=== PATIENT | female | born 1995 | race Two or more races ===

== ENCOUNTER 2023-10-08 20:55 | Inpatient (IN) | payer OTHER ==
[2023-10-08] MEDS ORDERED: DINOPROSTONE 10 MG VAGINAL SUPPOSITORY VG ONE (21:50)
[2023-10-08] MEDS: ELECTROLYTE-148 SOLN 1,000 ML IV SCH (22:05)
[2023-10-08 22:21] LABS: BASO % 1.2 % (0-2.0); EOS % 2.6 % (0-4.5); HEMATOCRIT 34.1 % (32.4-45.2); HEMOGLOBIN 11.1 GM/dL (10.7-15.3); LYMPH % 20.5 % (8-40); MCH 27.7 pg (25.7-33.7); MCHC 32.6 g/dl (32.0-36.0); MEAN PLT VOLUME 9.1 fl (7.5-11.1); MONO % 5.6 % (3.8-10.2); NEUT % 70.1 % (42.8-82.8); PLATELET COUNT 266 10^3/uL (134-434); RBC 4.01 M/mm3 (3.60-5.2); RDW 14.8 % (11.6-15.6); WHITE BLOOD COUNT 13.2 K/mm3 (4.0-10.0)
[2023-10-08 22:30] LABS: INR 0.97 (0.83-1.09); PROTHROMBIN TIME (PATIENT) 11.2 SEC (9.7-13.0)
[2023-10-08 22:32] LABS: ACTIVATED PTT 28.5 SECONDS (25.2-36.5)
[2023-10-08 22:54] LABS: POTASSIUM 3.5 mmol/L (3.5-5.1)
[2023-10-08 22:56] LABS: BLOOD UREA NITROGEN 7.7 mg/dL (7-18)
[2023-10-08 22:59] LABS: CREATININE 0.8 mg/dL (0.55-1.3)
[2023-10-08 23:36] VITALS: BMI 36.3
[2023-10-08 23:50] LABS: HIV INTERPRETATION NEGATIVE (NEGATIVE)
[2023-10-09] MEDS ORDERED: ZOLPIDEM TARTRATE 5 MG TABLET ONE (02:52)
[2023-10-09] MEDS: ELECTROLYTE-148 SOLN 1,000 ML IV SCH ×3 (02:55→13:20)
[2023-10-09] MEDS ORDERED: ZOLPIDEM TARTRATE 5 MG TABLET PO ONE (03:00)
[2023-10-09] MEDS ORDERED: OXYTOCIN 30 UNITS in 0.9% NS 30 UNIT/500 ML INFUS.BAG IVPB ONE (06:26)
[2023-10-09] MEDS: OXYTOCIN 30 UNITS in 0.9% NS 30 UNIT/500 ML INFUS.BAG IVPB SCH (06:40)
[2023-10-09] MEDS ORDERED: FENTANYL/BUPIVACAINE/NS/PF - PCEA - 50 ML DISP.SYRIN EP ONE ×2 (10:36→15:06)
[2023-10-09] MEDS: FENTANYL/BUPIVACAINE/NS/PF - PCEA - 50 ML DISP.SYRIN EP SCH ×2 (11:15→15:14)
[2023-10-09] MEDS ORDERED: BUPIVACAINE HCL/PF 0.25% (2.5MG/ML) 10 ML VIAL ONE (15:58)
[2023-10-09] MEDS ORDERED: OXYTOCIN 20 UNITS in 0.9% NS 20 UNIT/1,000 ML INFUS.BAG IV ONE (17:17)
[2023-10-09] MEDS ORDERED: LIDOCAINE HCL 1% PRESERVATIVE FREE - 30ML VIAL ONE (17:18)
[2023-10-09] MEDS ORDERED: ACETAMINOPHEN 325 MG TABLET (FP) PO PRN (20:08)
[2023-10-09] MEDS ORDERED: BISACODYL 10 MG SUPP.RECT RC PRN (20:08)
[2023-10-09] MEDS ORDERED: WITCH HAZEL 50% (TUCKS) 40 PAD/JAR PAD TP PRN (20:08)
[2023-10-09] MEDS ORDERED: oxyCODONE HCL 5 MG TABLET PO PRN (20:08)
[2023-10-09] MEDS ORDERED: BENZOCAINE 28 GM HEMORRHOIDAL OINTMENT TP PRN (20:08)
[2023-10-09] MEDS ORDERED: BENZOCAINE 20% 57 GM BOTTLE TP PRN (20:08)
[2023-10-09] MEDS ORDERED: METHYLERGONOVINE MALEATE 0.2 MG/1 ML AMP IM PRN (20:08)
[2023-10-09] MEDS ORDERED: OXYTOCIN 20 UNITS in 0.9% NS 20 UNIT/1,000 ML INFUS.BAG IV SCH (20:15)
[2023-10-09] MEDS ORDERED: ACETAMINOPHEN 325 MG TABLET (FP) ONE (21:21)
[2023-10-09] MEDS: IBUPROFEN 600 MG TABLET (FP) PO PRN (23:21)
[2023-10-10] MEDS: IBUPROFEN 600 MG TABLET (FP) PO PRN ×3 (05:43→17:48)
[2023-10-10 05:58] VITALS: RESP 18
[2023-10-10 08:25] LABS: HEMATOCRIT 24.5 % (32.4-45.2); HEMOGLOBIN 7.9 GM/dL (10.7-15.3); MCH 27.1 pg (25.7-33.7); MCHC 32.2 g/dl (32.0-36.0); MEAN CELL VOLUME 84.3 fl (80-96); MEAN PLT VOLUME 9.2 fl (7.5-11.1); PLATELET COUNT 239 10^3/uL (134-434); RDW 14.8 % (11.6-15.6); WHITE BLOOD COUNT 21.1 K/mm3 (4.0-10.0)
[2023-10-10 11:20] LABS: ANISOCYTOSIS 3+; MACROCYTOSIS 0; ROULEAU 1+
[2023-10-10] MEDS: FENTANYL/BUPIVACAINE/NS/PF - PCEA - 50 ML DISP.SYRIN EP SCH (11:31)
[2023-10-10] MEDS: ELECTROLYTE-148 SOLN 1,000 ML IV SCH ×2 (20:32→22:27)
[2023-10-10] MEDS: OXYTOCIN 30 UNITS in 0.9% NS 30 UNIT/500 ML INFUS.BAG IVPB SCH (20:33)
[2023-10-10] MEDS ORDERED: SENNOSIDES/DOCUSATE COMBO (SENNA PLUS) TABLET (UD) PO PRN (22:00)
[2023-10-11] MEDS: IBUPROFEN 600 MG TABLET (FP) PO PRN (05:54)
[2023-10-11 10:26] VITALS: BP 113/67; PULSE 80; TEMP 97.8
[2023-10-11] MEDS ORDERED: PRENATAL VITAMINS W/ FOLIC ACID TABLET (FP) PO SCH (12:00)
[2023-10-11] MEDS ORDERED: FERROUS SO4 325 MG TABLET (FP) PO SCH (12:00)
== END 2023-10-11 15:25 | disposition home or self-care (01) | DRG 560 ==
LOC: JLDR 20:55 → J3W 10-09 22:30
PROVIDERS: ADMIT Specialist; ATTEND Specialist
PROC: 10E0XZZ Delivery of Products of Conception, External Approach (ICD-10-PCS; principal; 2023-10-09)
PROC: 0W8NXZZ Division of Female Perineum, External Approach (ICD-10-PCS; 2023-10-09)
PROC: 3E0P7VZ Introduction of Hormone into Female Reproductive, Via Natural or Artificial Opening (ICD-10-PCS; 2023-10-09)
DX: O80 Encounter for full-term uncomplicated delivery (principal); Z3A.39 39 weeks gestation of pregnancy; Z37.0 Single live birth
CPT/HCPCS: 36415; 80048; 85025; 85610; 85730; 86780; 86850; 86900; 86901; 87389